=== PATIENT | male | born 1985 | race Caucasian/White ===

== ENCOUNTER 2023-01-07 16:32 | Inpatient (IN) | payer MEDICARE, MEDICAID ==
[~2023-01-07] VITALS: Ht 180.3 cm; Wt 80.8 kg
[2023-01-07 17:36] LABS: BASOPHILS # (AUTO) 0.1 X10'3 (0-0.2); BASOPHILS % (AUTO) 0.7 % (0-1); EOSINOPHILS # (AUTO) 0.1 X10'3 (0-0.9); EOSINOPHILS % (AUTO) 0.8 % (0-6); HEMATOCRIT 42.1 % (42.0-52.0); HEMOGLOBIN 14.2 g/dl (14.0-17.9); LYMPHOCYTES # (AUTO) 3.2 X10'3 (1.1-4.8); LYMPHOCYTES % (AUTO) 27.9 % (21-51); MEAN CORPUSCULAR HEMOGLOBIN 31.5 PG (27.0-31.0); MEAN CORPUSCULAR HGB CONC 33.7 g/dL (33.0-36.5); MEAN CORPUSCULAR VOLUME 93.4 FL (78-98); MEAN PLATELET VOLUME 7.7 FL (7.4-10.4); MONOCYTES % (AUTO) 8.8 % (2-12); NEUTROPHILS # (AUTO) 7.2 X10'3 (1.8-7.7); NEUTROPHILS % (AUTO) 61.8 % (42-75); PLATELET COUNT 301 X10'3 (140-440); RED BLOOD COUNT 4.51 X10'6 (4.70-6.10); RED CELL DISTRIBUTION WIDTH 13.1 % (11.5-14.5); WHITE BLOOD COUNT 11.6 X10'3 (4.5-11.0)
[2023-01-07 18:02] LABS: ALANINE AMINOTRANSFERASE 28 U/L (12-78); ALBUMIN 3.7 G/DL (3.4-5.0); ALKALINE PHOSPHATASE 99 IU/L (46-116); ANION GAP 8 (8-16); ASPARTATE AMINO TRANSFERASE 19 U/L (10-37); BILIRUBIN,TOTAL 0.3 MG/DL (0.1-1.0); BLOOD UREA NITROGEN 12 MG/DL (7-18); BUN/CREATININE RATIO 14.6 (10.0-20.0); CALCIUM 8.7 MG/DL (8.5-10.1); CHLORIDE 102 MMOL/L (99-107); CREATININE 0.82 MG/DL (0.60-1.10); ETHANOL < 10 MG/DL (<10); GLUCOSE 97 MG/DL (70-104); POTASSIUM 3.7 MMOL/L (3.5-5.1); SALICYLATE 2.1 MG/DL (4.0-20.0); SODIUM 136 MMOL/L (135-145); TOTAL CARBON DIOXIDE 25.9 MMOL/L (24-32); TOTAL PROTEIN 7.4 G/DL (6.4-8.2); eCRCL 133 ML/MIN; eGFR > 90 ML/MIN
[2023-01-07 18:26] LABS: ACETAMINOPHEN < 2.0 UG/ML (10-30)
[2023-01-07] MEDS ORDERED: NO HOME MEDS (20:39)
[2023-01-08 02:17] LABS: BILIRUBIN,URINE NEGATIVE (Neg); CLARITY,URINE CLEAR (Clear); COLOR,URINE YELLOW (Yellow); GLUCOSE, URINE NEGATIVE (Neg); KETONES,URINE NEGATIVE (Neg); LEUKOCYTE ESTERASE ,URINE NEGATIVE (Neg); NITRITES, URINE NEGATIVE (Neg); OCCULT BLOOD,URINE NEGATIVE (Neg); PROTEIN,URINE NEGATIVE (Neg); UROBILINOGEN,URINE 0.2 E.U/dL (0.2-1.0)
[2023-01-08 02:29] LABS: UA COLLECTION TYPE NON-SPECIFIED
[2023-01-08 02:33] LABS: URINE AMPHETAMINE SCREEN NEGATIVE (Neg); URINE BARBITUATE SCREEN NEGATIVE (Neg); URINE BENZODIAZEPINES SCREEN NEGATIVE (Neg); URINE CANNABINOID SCREEN NEGATIVE (Neg); URINE COCAINE SCREEN NEGATIVE (Neg); URINE METHADONE SCREEN NEGATIVE (Neg); URINE OPIATE SCREEN NEGATIVE (Neg); URINE PHENCYCLIDINE SCREEN NEGATIVE (Neg)
[2023-01-08 06:44] LABS: THYROID STIMULATING HORMONE 1.09 ulU/ml (0.34-4.50)
[2023-01-08] MEDS: cephalexin 500mg capsule PO SCH ×4 (08:54→20:44)
[2023-01-08] MEDS: sulfamethoxazole/trimethoprim DS (800/160mg) tablet PO SCH ×2 (08:54→20:45)
[2023-01-08] MEDS ORDERED: loperamide 2mg capsule PO PRN (13:45)
[2023-01-08] MEDS ORDERED: magnesium hydroxide 30ml (MOM) UD suspension PO PRN (13:45)
[2023-01-08] MEDS ORDERED: acetaminophen 325mg tablet PO PRN ×2 (13:45)
[2023-01-08] MEDS ORDERED: mag hydrox/Alum hydrox/simeth 30ml oral suspension PO PRN (13:45)
[2023-01-08 13:57] VITALS: BP 112/66; PULSE 89; RESP 16; TEMP 99.5; O2SAT 97
[2023-01-08 13:59] VITALS: RESP 16; O2SAT 97
[2023-01-08 19:00] VITALS: BP 109/63; PULSE 75; RESP 16; TEMP 97.1; O2SAT 96
[2023-01-09 07:00] VITALS: RESP 12; O2SAT 100
[2023-01-09 08:00] VITALS: BP 100/66; PULSE 73; RESP 12; TEMP 98; O2SAT 100
[2023-01-09] MEDS: nicotine 21mg patch - 24 hr TD SCH ×2 (08:00→11:28)
[2023-01-09] MEDS: cephalexin 500mg capsule PO SCH ×4 (08:05→20:24)
[2023-01-09] MEDS: sulfamethoxazole/trimethoprim DS (800/160mg) tablet PO SCH ×2 (08:05→20:24)
[2023-01-09 10:52] LABS: HEMOGLOBIN A1C 5.6 % (4.5-6.2)
[2023-01-09 11:17] LABS: CHOL/HDL RATIO 3.6 (0.00-4.99); CHOLESTEROL 183 MG/DL (0-200); HDL CHOLESTEROL 51 MG/DL (35-60); LDL CHOLESTEROL 104 MG/DL (50-100); TRIGLYCERIDES 166 MG/DL (20-135)
[2023-01-09 19:00] VITALS: BP 106/59; PULSE 75; RESP 14; TEMP 97.1; O2SAT 97
[2023-01-09] MEDS: traZODone 50mg tablet PO SCH (20:24)
[2023-01-10 07:00] VITALS: RESP 16; O2SAT 96
[2023-01-10] MEDS: ESCITALOPRAM 10 mg tablet 10 MG TABLET PO SCH (08:00)
[2023-01-10] MEDS: cephalexin 500mg capsule PO SCH ×4 (08:00→20:01)
[2023-01-10] MEDS: sulfamethoxazole/trimethoprim DS (800/160mg) tablet PO SCH ×2 (08:00→20:01)
[2023-01-10] MEDS: nicotine 21mg patch - 24 hr TD SCH (08:00)
[2023-01-10 08:33] LABS: HBSAG SCREEN Negative (Negative); HEP B CORE AB, IGM Negative (Negative); HEP B CORE AB, TOT Negative (Negative)
[2023-01-10 08:58] VITALS: BP 95/59; PULSE 64; RESP 16; TEMP 97.3; O2SAT 96
[2023-01-10 19:00] VITALS: RESP 16; O2SAT 96
[2023-01-10] MEDS: traZODone 50mg tablet PO SCH ×2 (20:01→23:41)
[2023-01-10] MEDS: NICOTINE POLACRILEX 2 MG LOZENGE BC PRN (20:05)
[2023-01-10 20:45] VITALS: BP 117/58; PULSE 81; RESP 16; TEMP 97.3; O2SAT 96
[2023-01-10] MEDS ORDERED: OLANZapine 5mg rapidly disint. tablet PO STA (23:36)
[2023-01-10] MEDS: hydrOXYzine 25 MG tablet PO PRN (23:41)
[2023-01-11 07:00] VITALS: RESP 12; O2SAT 60
[2023-01-11 08:00] VITALS: BP 99/58; PULSE 12; RESP 60; TEMP 98; O2SAT 95
[2023-01-11] MEDS: sulfamethoxazole/trimethoprim DS (800/160mg) tablet PO SCH ×2 (08:25→20:15)
[2023-01-11] MEDS: ESCITALOPRAM 10 mg tablet 10 MG TABLET PO SCH (08:25)
[2023-01-11] MEDS: nicotine 21mg patch - 24 hr TD SCH (08:25)
[2023-01-11] MEDS: cephalexin 500mg capsule PO SCH ×4 (08:25→20:17)
[2023-01-11 19:00] VITALS: RESP 14; O2SAT 95
[2023-01-11 19:46] VITALS: BP 100/56; PULSE 67; RESP 14; TEMP 97.9; O2SAT 95
[2023-01-11] MEDS: traZODone 50mg tablet PO SCH (20:16)
[2023-01-12 07:00] VITALS: RESP 18; O2SAT 99
[2023-01-12 08:00] VITALS: BP 99/56; PULSE 62; RESP 18; TEMP 98.4; O2SAT 99
[2023-01-12] MEDS ORDERED: ESCITALOPRAM 10 mg tablet 10 MG TABLET PO SCH (08:00)
[2023-01-12] MEDS: cephalexin 500mg capsule PO SCH ×4 (08:13→20:26)
[2023-01-12] MEDS: sulfamethoxazole/trimethoprim DS (800/160mg) tablet PO SCH ×2 (08:13→20:26)
[2023-01-12] MEDS: nicotine 21mg patch - 24 hr TD SCH (08:14)
[2023-01-12 19:25] VITALS: RESP 18; O2SAT 94
[2023-01-12] MEDS: hydrOXYzine 25 MG tablet PO PRN (19:38)
[2023-01-12] MEDS: NICOTINE POLACRILEX 2 MG LOZENGE BC PRN (19:38)
[2023-01-12 20:00] VITALS: BP 109/62; PULSE 76; RESP 16; TEMP 98; O2SAT 94
[2023-01-12] MEDS: traZODone 50mg tablet PO SCH (20:26)
[2023-01-13 07:00] VITALS: RESP 17; O2SAT 97
[2023-01-13] MEDS: nicotine 21mg patch - 24 hr TD SCH ×3 (07:11→11:54)
[2023-01-13] MEDS: ESCITALOPRAM 10 mg tablet 10 MG TABLET PO SCH (07:12)
[2023-01-13] MEDS: cephalexin 500mg capsule PO SCH ×4 (07:12→20:53)
[2023-01-13] MEDS: sulfamethoxazole/trimethoprim DS (800/160mg) tablet PO SCH ×2 (07:12→20:53)
[2023-01-13 08:00] VITALS: BP 91/56; PULSE 81; RESP 17; TEMP 97.7; O2SAT 97
[2023-01-13] MEDS: hydrOXYzine 25 MG tablet PO PRN (11:52)
[2023-01-13] MEDS: NICOTINE POLACRILEX 2 MG LOZENGE BC PRN ×2 (15:33→21:21)
[2023-01-13 19:00] VITALS: BP 106/79; PULSE 84; RESP 16; TEMP 98.1; O2SAT 97
[2023-01-13] MEDS: traZODone 50mg tablet PO SCH (20:55)
[2023-01-14 07:00] VITALS: BP 91/55; PULSE 60; RESP 12; RESP 16; TEMP 97.3; O2SAT 100; O2SAT 99
[2023-01-14] MEDS: nicotine 21mg patch - 24 hr TD SCH (08:23)
[2023-01-14] MEDS: ESCITALOPRAM 10 mg tablet 10 MG TABLET PO SCH (08:24)
[2023-01-14] MEDS: cephalexin 500mg capsule PO SCH ×4 (08:24→19:56)
[2023-01-14] MEDS: sulfamethoxazole/trimethoprim DS (800/160mg) tablet PO SCH ×2 (08:24→19:56)
[2023-01-14] MEDS: NICOTINE POLACRILEX 2 MG LOZENGE BC PRN ×2 (15:49→19:56)
[2023-01-14 19:00] VITALS: BP 118/73; PULSE 77; RESP 18; TEMP 97.4; O2SAT 97
[2023-01-14] MEDS: traZODone 50mg tablet PO SCH (19:57)
[2023-01-15 07:00] VITALS: RESP 16; O2SAT 98
[2023-01-15 08:00] VITALS: BP 101/55; PULSE 72; RESP 16; TEMP 98.9; O2SAT 98
[2023-01-15] MEDS: nicotine 21mg patch - 24 hr TD SCH (08:00)
[2023-01-15] MEDS: cephalexin 500mg capsule PO SCH ×4 (08:28→20:13)
[2023-01-15] MEDS: sulfamethoxazole/trimethoprim DS (800/160mg) tablet PO SCH ×2 (08:28→20:13)
[2023-01-15] MEDS: ESCITALOPRAM 10 mg tablet 10 MG TABLET PO SCH (08:28)
[2023-01-15] MEDS: NICOTINE POLACRILEX 2 MG LOZENGE BC PRN ×2 (11:27→20:13)
[2023-01-15 19:56] VITALS: BP 103/67; PULSE 60; RESP 18; RESP 20; TEMP 97.5; O2SAT 97; O2SAT 99
[2023-01-15] MEDS: traZODone 50mg tablet PO SCH (20:13)
[2023-01-16 07:00] VITALS: RESP 16; O2SAT 97
[2023-01-16 07:41] VITALS: BP 87/51; PULSE 56; RESP 14; TEMP 97.8; O2SAT 97
[2023-01-16] MEDS: nicotine 21mg patch - 24 hr TD SCH (08:00)
[2023-01-16] MEDS: ESCITALOPRAM 10 mg tablet 10 MG TABLET PO SCH (08:32)
[2023-01-16] MEDS: sulfamethoxazole/trimethoprim DS (800/160mg) tablet PO SCH ×2 (08:32→20:03)
[2023-01-16] MEDS: NICOTINE POLACRILEX 2 MG LOZENGE BC PRN ×2 (11:58→19:19)
[2023-01-16 19:00] VITALS: RESP 15; O2SAT 98
[2023-01-16 19:34] VITALS: BP 91/67; PULSE 65; RESP 15; TEMP 96.7; O2SAT 98
[2023-01-16] MEDS: traZODone 50mg tablet PO SCH (20:03)
[2023-01-17 07:00] VITALS: BP 91/59; PULSE 80; RESP 16; TEMP 97.8; O2SAT 95; O2SAT 98
[2023-01-17] MEDS: nicotine 21mg patch - 24 hr TD SCH (08:00)
[2023-01-17] MEDS: ESCITALOPRAM 10 mg tablet 10 MG TABLET PO SCH (08:43)
[2023-01-17] MEDS: hydrOXYzine 25 MG tablet PO PRN (11:21)
[2023-01-17] MEDS: NICOTINE POLACRILEX 2 MG LOZENGE BC PRN ×2 (15:49→20:07)
[2023-01-17 19:00] VITALS: BP 125/76; PULSE 89; RESP 16; TEMP 97.4; O2SAT 97
[2023-01-17] MEDS: traZODone 50mg tablet PO SCH (20:01)
[2023-01-18 07:00] VITALS: RESP 16; O2SAT 97
[2023-01-18 08:00] VITALS: BP 100/60; PULSE 55; RESP 16; TEMP 97; O2SAT 97
[2023-01-18] MEDS: nicotine 21mg patch - 24 hr TD SCH ×2 (08:00→08:01)
[2023-01-18] MEDS: ESCITALOPRAM 10 mg tablet 10 MG TABLET PO SCH (08:00)
[2023-01-18] MEDS: NICOTINE POLACRILEX 2 MG LOZENGE BC PRN ×2 (13:48→20:42)
[2023-01-18] MEDS ORDERED: LORazepam 1 MG tablet PO ONE (16:20)
[2023-01-18 19:00] VITALS: BP 110/68; PULSE 78; RESP 16; TEMP 97; O2SAT 97
[2023-01-18] MEDS: traZODone 50mg tablet PO SCH (20:42)
[2023-01-19 07:00] VITALS: RESP 16
[2023-01-19] MEDS: ESCITALOPRAM 10 mg tablet 10 MG TABLET PO SCH (07:24)
[2023-01-19 08:00] VITALS: BP 91/52; PULSE 74; RESP 16; TEMP 98.5; O2SAT 97
[2023-01-19] MEDS: NICOTINE POLACRILEX 2 MG LOZENGE BC PRN ×3 (12:19→20:19)
[2023-01-19 19:00] VITALS: RESP 16; O2SAT 94
[2023-01-19 20:00] VITALS: BP 107/61; PULSE 75; RESP 16; TEMP 98.4; O2SAT 94
[2023-01-19] MEDS: traZODone 50mg tablet PO SCH (20:10)
[2023-01-20 07:00] VITALS: RESP 18; O2SAT 98
[2023-01-20 08:00] VITALS: BP 97/59; PULSE 71; RESP 14; TEMP 98.1; O2SAT 96
[2023-01-20] MEDS: ESCITALOPRAM 10 mg tablet 10 MG TABLET PO SCH (08:10)
[2023-01-20] MEDS: NICOTINE POLACRILEX 2 MG LOZENGE BC PRN ×2 (11:51→18:45)
[2023-01-20 19:00] VITALS: BP 100/71; PULSE 78; RESP 16; TEMP 98.4; O2SAT 94; O2SAT 97
[2023-01-20] MEDS: hydrOXYzine 25 MG tablet PO PRN (19:06)
[2023-01-20] MEDS: traZODone 50mg tablet PO SCH (20:25)
[2023-01-21 07:00] VITALS: RESP 12; O2SAT 96
[2023-01-21 08:00] VITALS: BP 98/56; PULSE 61; RESP 12; TEMP 97.9; O2SAT 96
[2023-01-21] MEDS: ESCITALOPRAM 10 mg tablet 10 MG TABLET PO SCH (08:25)
[2023-01-21] MEDS: NICOTINE POLACRILEX 2 MG LOZENGE BC PRN ×2 (14:43→18:26)
[2023-01-21] MEDS ORDERED: NICO-907 BC (16:10)
[2023-01-21] MEDS ORDERED: HYDR-3686 PO (16:10)
[2023-01-21] MEDS ORDERED: BREX1TAB PO (16:10)
[2023-01-21] MEDS ORDERED: TRAZ-251 PO (16:10)
[2023-01-21] MEDS ORDERED: ESCI20TA39 PO (16:10)
[2023-01-21 20:01] VITALS: BP 135/77; PULSE 79; RESP 16; TEMP 97.1; O2SAT 97
[2023-01-21] MEDS: traZODone 50mg tablet PO SCH (20:52)
[2023-01-21] MEDS: hydrOXYzine 25 MG tablet PO PRN (23:16)
[2023-01-22] MEDS ORDERED: traZODone 50mg tablet PO ONE (00:15)
[2023-01-22 07:00] VITALS: RESP 12; O2SAT 96
[2023-01-22 08:00] VITALS: BP 89/55; PULSE 61; RESP 16; TEMP 97.7; O2SAT 97
[2023-01-22] MEDS: ESCITALOPRAM 10 mg tablet 10 MG TABLET PO SCH (08:53)
[2023-01-22] MEDS: NICOTINE POLACRILEX 2 MG LOZENGE BC PRN ×2 (10:21→18:15)
[2023-01-22 19:00] VITALS: RESP 17; O2SAT 98
[2023-01-22] MEDS: traZODone 50mg tablet PO SCH (19:57)
[2023-01-22] MEDS: hydrOXYzine 25 MG tablet PO PRN (19:58)
[2023-01-22 20:00] VITALS: BP 117/75; PULSE 71; RESP 16; TEMP 97.5; O2SAT 97
== END 2023-01-23 01:30 | disposition home or self-care (01) | DRG 885 ==
LOC: ER 16:32 → ED HOLD 01-08 11:55 → ADULT MH 01-08 13:37
PROVIDERS: ADMIT Psychiatry & Neurology Psychiatry; ATTEND Psychiatry & Neurology Psychiatry
DX: F33.2 Major depressive disorder, recurrent severe without psychotic features (principal); R45.851 Suicidal ideations; Z59.00 Homelessness unspecified; Z20.822 Contact with and (suspected) exposure to COVID-19; Z91.51 Personal history of suicidal behavior; Z56.0 Unemployment, unspecified
CPT/HCPCS: 36415; 80053; 80061; 80305; 80320; 80329; 81003; 83036; 84443; 85025; 86704; 86705; 87081; 87340; 87811; 99285; C2617; Q0177